=== PATIENT | female | born 1990 | race Caucasian/White ===

== ENCOUNTER 2020-07-02 12:24 | Emergency (ER) | payer OTHER, SELFPAY ==
--- NOTE | ~2020-07-02 | XR_ITS ---
XR ankle LT min 3V DATE: 07/02/2020 13:04 INDICATION: Fall, injury TECHNIQUE: 4 views COMPARISON: None FINDINGS: There is mild plantar calcaneal enthesopathy. No fracture or dislocation of the ankle or disruption of the ankle mortise. IMPRESSION: Mild plantar calcaneal enthesopathy Reviewed, dictated and finalized at location A.
[2020-07-02 12:27] VITALS: BP 124/78; PULSE 102; RESP 14; TEMP 36.8; O2SAT 98
--- NOTE | 2020-07-02 12:54 | ED.WOUNDLAC ---
HPI - Wound/Laceration General Chief Complaint: Wound/Laceration Stated Complaint: burned my hand Time Seen by Provider: 07/02/20 12:54 Source: patient Mode of arrival: ambulatory Limitations: no limitations History of Present Illness HPI narrative: Patient is a 30-year-old female who presents for evaluation of blister/wound to the palmar aspect of the left hand as well as left ankle pain. Pain in the left hand is burning in nature, pain in the left ankle is dull, aching and. 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 Patient presents for evaluation of blister injury to ensure that this is not a severe burn or at risk for infection. Patient is up-to-date on her tetanus. No numbness in the left hand. No active bleeding. Patient reports that she has some swelling and bruising in the left ankle. She denies numbness in the foot. No head trauma or loss of consciousness. No upper extremity injuries. Related Data Home Medications Medication Instructions Recorded Confirmed PNV 119-iron fum-folic acid tablet PO 07/02/20 [Se--19] calcium carbonate-vitamin D3 tablet 07/02/20 [Oysco 500/D] citalopram mg 07/02/20 clonazepam 07/02/20 glipizide mg 07/02/20 hydroxyzine HCl 07/02/20 lamotrigine 07/02/20 loperamide 07/02/20 07/02/20 metformin mg PO 07/02/20 metoclopramide HCl 07/02/20 omeprazole 07/02/20 pyridoxine (vitamin B6) [Vitamin 07/02/20 B-6] pyridoxine (vitamin B6) [Vitamin 07/02/20 B-6] topiramate 07/02/20 trazodone 07/02/20 Allergies Allergy/AdvReac Type Severity Reaction Status Date / Time coconut Allergy Severe LIP Verified 07/02/20 12:38 SWELLING amoxicillin Allergy Unknown Rash Verified 07/02/20 12:38 aspirin Allergy Unknown Rash Verified 07/02/20 12:38 influenza virus vaccine, Allergy Unknown ITCHING/SSUHMA Verified 07/02/20 12:38 specific SEA latex Allergy Unknown GLOVES-RASH Verified 07/02/20 12:38 NSAIDS (Non-Steroidal Allergy Unknown Rash Verified 07/02/20 12:38 Anti-Inflamma Penicillins Allergy Unknown Rash Verified 07/02/20 12:38 Review of Systems Review of Systems: Narrative: CONSTITUTIONAL: Denies fever CARDIOVASCULAR: Denies chest pain RESPIRATORY: Denies cough or dyspnea. GASTROINTESTINAL: Denies abdominal pain SKIN: Denies rash, reports blister to left hand MUSCULOSKELETAL: Denies back pain, reports left ankle swelling and pain NEUROLOGIC: Denies headache PMFSH Past Medical History Medical History Type 2 diabetes mellitus Surgical History Surgical History H/O section Family History Family History (Updated 08/20/15 @ 10:09 by DOCTOR UNKNOWN) Father Hypertension Family history of malignant neoplasm Other Family history of cardiovascular disease Social History Social History Smoking status: Current every day smoker Alcohol intake: current Gender identity (if verbalized by the patient): Female Exam Narrative: Exam Narrative: GENERAL: Awake, alert, conversant HEAD: Normocephalic, atraumatic. EYES: PERRLA and EOMI. ENT: Nares clear, no rhinorrhea or epistaxis. Mucous membranes moist. NECK: Supple. CHEST: No respiratory distress, breathing even and non labored HEART: Regular rate, sinus rhythm ABDOMEN:Non distended, obese EXTREMITIES: Decreased flexion and extension of the left ankle due to pain. There is mild edema to the lateral aspect of the left ankle and ecchymosis. No deformity. DP pulse 2+. Intact distal sensation. Full flexion and extension at the left knee without limitation or pain. No fibular head tenderness. Mild tenderness over the forefoot. Left hand notabl
[2020-07-02] MEDS: oxyCODONE/ACETAMINOPHEN 5-325 MG TABLET 1 TABLET PO (13:57)
[2020-07-02 14:02] VITALS: BP 141/92; PULSE 94; RESP 19; TEMP 36.6; O2SAT 99
--- NOTE | 2020-07-02 14:06 | PC.NURSE ---
Pt refused crutches
== END 2020-07-02 14:07 | disposition home or self-care (01) ==
PROVIDERS: Emergency Provider Emergency Medicine
DX: T23.202A Burn of second degree of left hand, unspecified site, initial encounter (principal); S93.402A Sprain of unspecified ligament of left ankle, initial encounter; T31.0 Burns involving less than 10% of body surface; X10.2XXA Contact with fats and cooking oils, initial encounter; W18.40XA Slipping, tripping and stumbling without falling, unspecified, initial encounter; X50.9XXA Other and unspecified overexertion or strenuous movements or postures, initial encounter
CPT/HCPCS: 73610; 99283; A9270

== ENCOUNTER 2020-07-17 15:02 | Emergency (ER) | payer OTHER, SELFPAY ==
--- NOTE | ~2020-07-17 | XR_ITS ---
EXAMINATION: XR wrist RT min 3V DATE: 07/17/2020 17:18 INDICATION: Medial sided right wrist bruising and posterior swelling post fall TECHNIQUE: Posteroanterior, ulnar deviation, oblique, and lateral views of the right wrist were obtai zi. COMPARISON: none FINDINGS: Alignment is normal. No fracture. Joint spaces are normal. Soft tissues are unremarkable. IMPRESSION: 1. . Negative right wrist radiographs. Reviewed, dictated and finalized at location A.
--- NOTE | ~2020-07-17 | CT_ITS ---
EXAMINATION: CT cervical spine wo con DATE: 07/17/2020 16:48 INDICATION: Head injury. Neck pain. TECHNIQUE: Computed tomography (CT) of the cervical spine was performed without intravenous contrast. Automated exposure control and iterative reconstruction technique were employed. The dose-length pro duct was 476.26 mGy-cm. COMPARISON: None FINDINGS: There is kyphosis and 7 degrees levocurvature of cervical spine. Vertebral body heights and intervertebral disc heights are normal. At C7-T1, there is mild bilateral facet joint osteoarthritis . No neural foraminal stenosis or central canal stenosis. IMPRESSION: 1. No fracture. Reviewed, dictated and finalized at location B. IMPRESSION: 1. No fracture.
--- NOTE | ~2020-07-17 | CT_ITS ---
EXAMINATION: CT brain wo con DATE: 07/17/2020 16:48 INDICATION: Head injury. TECHNIQUE: Computed tomography (CT) of the head was performed without intravenous contrast. The mA wa s adjusted according to patient size. Iterative reconstruction technique was employed. The dose-lengt h product was 605.33 mGy-cm. COMPARISON: Head CT 06/28/2013 FINDINGS: There is no intracranial hemorrhage, acute infarction, or abnormal intracranial mass lesion . The ventricles are normal in size. There is mild mucosal thickening in the paranasal sinuses. The m astoid air cells are normal. The orbits are normal. IMPRESSION: 1. Normal brain. Reviewed, dictated and finalized at location B. IMPRESSION: 1. Normal brain.
--- NOTE | ~2020-07-17 | XR_ITS ---
EXAMINATION: XR shoulder RT min 2V DATE: 07/17/2020 17:18 INDICATION: Posterior right shoulder pain post fall TECHNIQUE: AP internally and externally rotated, AP oblique externally rotated and transscapular Y vi ews of the right shoulder were obtained. COMPARISON: None FINDINGS: Normal alignment. No fracture. Glenohumeral joint is normal. Acromioclavicular joint is normal. Smal l subacromial spur. Soft tissues are unremarkable. Visualized portions of the lungs are clear. IMPRESSION: No acute osseous abnormality. Reviewed, dictated and finalized at location A.
--- NOTE | ~2020-07-17 | XR_ITS ---
EXAMINATION: XR elbow RT min 3V DATE: 07/17/2020 17:19 INDICATION: Right elbow pain post fall TECHNIQUE: Anteroposterior, two oblique and lateral views of the right elbow were obtained. COMPARISON: None. FINDINGS: Alignment is normal. No fracture or joint effusion. Joint spaces are normal. Tiny enthesophyte at the tip of the olecranon. Soft tissues are unremarkable. IMPRESSION: 1. No right elbow joint effusion or acute osseous abnormality. Reviewed, dictated and finalized at location A.
--- NOTE | ~2020-07-17 | XR_ITS ---
EXAMINATION: XR lumbar spine 2-3V, XR sacrum coccyx min 2V DATE: 07/17/2020 17:19 INDICATION: Low back and tailbone pain post fall TECHNIQUE: 1. Anteroposterior and lateral views of the lumbar spine, and cone-down lateral view of the lumbosacr al junction were obtained. 2. AP, angled AP and lateral views of the sacrum and coccyx were obtained. COMPARISON: CT abdomen and pelvis dated 08/08/2015 FINDINGS: Transitional L6 lumbosacral segment which is sacralized on the left. Minimal lumbar levocurvature. Sa gittal alignment is normal. Vertebral body heights are normal. Mild disc height loss at L5-L6. Sacrum and bilateral sacroiliac joints are normal within intact appearing sacral arches. Chronic leftward a ngulation and slight posterior subluxation of the coccyx relative to the tip of the sacrum which is u nchanged from prior CT and is likely either developmental or sequela of old trauma. No acute fracture s identified. IMPRESSION: 1. Mild disc height loss at L5-L6. No acute osseous abnormality in the lumbar spine, sacrum or coccyx . Reviewed, dictated and finalized at location A. IMPRESSION: 1. Mild disc height loss at L5-L6. No acute osseous abnormality in the lumbar s pine, sacrum or coccyx.
[2020-07-17 15:06] VITALS: BP 144/100; PULSE 106; RESP 16; TEMP 37.2; O2SAT 99
[2020-07-17] MEDS: ONDANSETRON INJ 4 MG/2 ML VIAL IV PUSH (17:20)
[2020-07-17] MEDS: MORPHINE SULFATE 2 MG/ML INJ IV PUSH (17:21)
[2020-07-17 18:00] VITALS: BP 116/82; PULSE 98; RESP 16; O2SAT 100
--- NOTE | 2020-07-17 18:17 | ED.FALL ---
HPI - Fall General Chief Complaint: Fall Stated Complaint: fall/hit injury Time Seen by Provider: 07/17/20 15:44 Source: patient Mode of arrival: ambulatory Limitations: no limitations History of Present Illness HPI Narrative: Patient presents for evaluation of the posterior aspect of the head, right arm low back and coccyx after slipping on a wet floor while working at [employer]. Patient denies loss of consciousness but reports throbbing to the posterior aspect of head and pain to the area as aforementioned. Patient reports decreased range of motion to her right shoulder due to pain which she put out posterior laterally in an attempt to catch her fall. Patient denies loss of consciousness, changes in vision or hearing, bleeding from any of her orifices patient denies loss of bowel or bladder function or saddle paresthesias. Patient reports some decrease of motion due to pain. Patient has a history of high blood pressure, diabetes, migraines. Related Data Home Medications Medication Instructions Recorded Confirmed calcium carbonate-vitamin D3 tablet 07/02/20 [Oysco 500/D] citalopram mg 07/02/20 clonazepam 07/02/20 glipizide mg 07/02/20 hydroxyzine HCl 07/02/20 lamotrigine 07/02/20 loperamide 07/02/20 07/02/20 metformin mg PO 07/02/20 metoclopramide HCl 07/02/20 omeprazole 07/02/20 pyridoxine (vitamin B6) [Vitamin 07/02/20 B-6] pyridoxine (vitamin B6) [Vitamin 07/02/20 B-6] lisinopril-hydrochlorothiazide 25 - 100 DAILY 07/17/20 Allergies Allergy/AdvReac Type Severity Reaction Status Date / Time coconut Allergy Severe LIP Verified 07/17/20 15:31 SWELLING amoxicillin Allergy Unknown Rash Verified 07/17/20 15:31 aspirin Allergy Unknown Rash Verified 07/17/20 15:31 influenza virus vaccine, Allergy Unknown ITCHING/SUSHMA Verified 07/17/20 15:31 specific SEA latex Allergy Unknown GLOVES-RASH Verified 07/17/20 15:31 NSAIDS (Non-Steroidal Allergy Unknown Rash Verified 07/17/20 15:31 Anti-Inflamma Penicillins Allergy Unknown Rash Verified 07/17/20 15:31 Review of Systems Review of Systems: Narrative: CONSTITUTIONAL: Denies fever, chills, or sweats. EYES: Denies visual changes, redness, or discharge. ENT: Denies rhinorrhea, congestion, sore throat, or otalgia. CARDIOVASCULAR: Denies chest pain, palpitations, or edema. RESPIRATORY: Denies cough or dyspnea. GASTROINTESTINAL: Denies abdominal pain, nausea, vomiting, or diarrhea. GENITOURINARY: Denies dysuria or hematuria. SKIN: Denies rash or itching. MUSCULOSKELETAL: Reports low back pain, right arm pain NEUROLOGIC: Reports headache, denies numbness, dizziness, or weakness. PSYCHIATRIC: Denies anxiety or depression. [facility] Family History Family History (Updated 08/20/15 @ 10:09 by DOCTOR UNKNOWN) Father Hypertension Family history of malignant neoplasm Other Family history of cardiovascular disease Social History Social History Smoking status: Current every day smoker Alcohol intake: current Gender identity (if verbalized by the patient): Female Exam Narrative: Exam Narrative: GENERAL: Well-appearing, well-nourished. Exam limited due to patient's discomfort and practicing range of motion and rotating for posterior exam. HEAD: Normocephalic, atraumatic. EYES: PERRLA and EOMI. ENT: Nares clear, no rhinorrhea or epistaxis. Mucous membranes moist. Oropharynx without tonsillar hypertrophy exudate or other lesions. Bilateral TMs pearly fuentes nonbulging no hemotympanum.. NECK: Supple. No adenopathy or masses. Sensation and range of motion intact to lower extremities. No saddle paresthesia. CHEST: Clear to auscultation. No respiratory distress. No wheezes rales or rhonchi HEART: Regular rate and rhythm. ABDOMEN: Soft, nontender, nondistended, normal active bowel sounds. BACK: No outward signs of injury. No outward signs of injury diffuse tenderness to palpation t
[2020-07-17 18:46] VITALS: BP 118/75; PULSE 72; RESP 16; O2SAT 100
== END 2020-07-17 18:59 | disposition home or self-care (01) ==
PROVIDERS: Emergency Provider Emergency Medicine
DX: S09.90XA Unspecified injury of head, initial encounter (principal); S46.911A Strain of unspecified muscle, fascia and tendon at shoulder and upper arm level, right arm, initial encounter; S30.0XXA Contusion of lower back and pelvis, initial encounter; F17.210 Nicotine dependence, cigarettes, uncomplicated
CPT/HCPCS: 70450; 72100; 72125; 72220; 73030; 73080; 73110; 81025; 96374; 96375; 99284; A4565; J2270; J2405

== ENCOUNTER 2020-09-25 17:29 | Emergency (ER) | payer OTHER, SELFPAY ==
[2020-09-25 17:49] VITALS: BP 113/74; PULSE 97; RESP 18; TEMP 36.2; O2SAT 100
--- NOTE | 2020-09-25 18:51 | ED.GENADULT ---
HPI - General Adult General Chief complaint: Extremity Injury, Lower Stated complaint: bilateral leg swelling, pain Time Seen by Provider: 09/25/20 18:07 Source: patient History of Present Illness HPI narrative: 30-year-old female presents to emergency department for bilateral lower extremity swelling since September 22, and pain that she noticed the next day. Patient took some Tylenol for pain. She also has noticed bruising for the same amount of time. No current abdominal pain. No nausea or vomiting. No fever or chills. Related Data Home Medications Medication Instructions Recorded Confirmed calcium carbonate-vitamin D3 tablet 07/02/20 [Oysco 500/D] citalopram mg 07/02/20 clonazepam 07/02/20 glipizide mg 07/02/20 hydroxyzine HCl 07/02/20 lamotrigine 07/02/20 loperamide 07/02/20 07/02/20 metformin mg PO 07/02/20 metoclopramide HCl 07/02/20 omeprazole 07/02/20 pyridoxine (vitamin B6) [Vitamin 07/02/20 B-6] pyridoxine (vitamin B6) [Vitamin 07/02/20 B-6] lisinopril-hydrochlorothiazide 25 - 100 DAILY 07/17/20 Allergies Allergy/AdvReac Type Severity Reaction Status Date / Time coconut Allergy Severe LIP Verified 09/25/20 17:52 SWELLING amoxicillin Allergy Unknown Rash Verified 09/25/20 17:52 aspirin Allergy Unknown Rash Verified 09/25/20 17:52 influenza virus vaccine, Allergy Unknown ITCHING/SUSHMA Verified 09/25/20 17:52 specific SEA latex Allergy Unknown GLOVES-RASH Verified 09/25/20 17:52 NSAIDS (Non-Steroidal Allergy Unknown Rash Verified 09/25/20 17:52 Anti-Inflamma Penicillins Allergy Unknown Rash Verified 09/25/20 17:52 Review of Systems Review of Systems: Narrative: CONSTITUTIONAL: Denies fever, chills, or sweats. EYES: Denies visual changes, redness, or discharge. ENT: Denies rhinorrhea, congestion, sore throat, or otalgia. CARDIOVASCULAR: Denies chest pain, palpitations, or edema. RESPIRATORY: Denies cough or dyspnea. GASTROINTESTINAL: Denies abdominal pain, nausea, vomiting, or diarrhea. GENITOURINARY: Denies dysuria or hematuria. SKIN: Denies rash or itching. MUSCULOSKELETAL: Denies back pain, joint pain, or myalgia. NEUROLOGIC: Denies headache, numbness, dizziness, or weakness. PSYCHIATRIC: Denies anxiety or depression. All systems reviewed & are unremarkable except as noted in HPI and below (ROS) PMFSH Past Medical History Medical History Type 2 diabetes mellitus Surgical History Surgical History H/O section Family History Family History Father Hypertension Family history of malignant neoplasm Other Family history of cardiovascular disease Social History Social History Smoking status: Current every day smoker Alcohol intake: current Gender identity (if verbalized by the patient): Female Exam Narrative: Exam Narrative: GENERAL: Well-appearing, well-nourished, and in no acute distress. HEAD: Normocephalic, atraumatic. EYES: PERRLA and EOMI. ENT: Nares clear, no rhinorrhea or epistaxis. Mucous membranes moist. NECK: Supple. CHEST: Clear to auscultation. No respiratory distress. HEART: Regular rate and rhythm. No murmur heard. Normal peripheral pulses. ABDOMEN: Soft, nontender, nondistended, normal active bowel sounds. EXTREMITIES: Normal range of motion. Minimal edema lower extremities bilaterally SKIN: Warm, dry, no rash. NEURO: No focal deficits. Alert and oriented x3. PSYCH: Normal mood and affect. Course Reevaluation(s) Reevaluation #1: 1999 -reevaluated patient, no new complaints. At this time, I see no emergent condition causing this patient's leg swelling and pain. Low suspicion for bilateral DVT. Pain likely musculoskeletal. Counseled patient to follow-up with her medical provider within 1 week. Ret
--- NOTE | 2020-09-25 19:04 | PC.NURSE ---
Pt states gets a rash from NSAID's, order changed per request Dr. Vivar.
[2020-09-25] MEDS: ACETAMINOPHEN 325 MG TABLET 650 MG PO (19:14)
--- NOTE | 2020-09-25 19:20 | PC.NURSE ---
Bedside report to GILDA Mccrary, to continue care.
[2020-09-25 19:25] LABS: Basophils Absolute Auto 0.1 K/mm3 (0.0-0.1); Basophils Percent Auto 0.7 % (0.2-1.2); Eosinophils Absolute Auto 0.2 K/mm3 (0-0.3); Eosinophils Percent Auto 1.9 % (0-4.4); Hematocrit 35.1 % (37.0-47.0); Hemoglobin 10.3 g/dL (12.0-15.0); Immature Granulocyte Absolute 0.02 K/mm3 (0.00-0.031); Immature Granulocyte Percent A 0.2 % (0-0.5); Lymphocytes Absolute Auto 2.64 K/mm3 (0.9-3.2); Mean Corpuscular HGB Conc 29.3 g/dl (32-36); Mean Corpuscular Hemoglobin 21.4 pg (26-34); Mean Platelet Volume 9.4 fl (7.4-10.4); Monocytes Absolute Auto 0.7 K/mm3 (0.1-0.6); Monocytes Percent Auto 6.2 % (2.6-8.5); Platelet Count Result 354 k/mm3 (150-375); Red Blood Count 4.81 M/mm3 (4.2-5.4); Red Cell Distribution Width 17.1 % (11.5-14.5); White Blood Count 10.6 K/mm3 (4.5-10.0)
[2020-09-25 19:37] LABS: Alanine Aminotransferase 15 U/L (4-35); Albumin Level 4.1 g/dL (3.5-5.1); Alkaline Phosphatase 74 U/L (38-126); Anion Gap 8 mmol/L (8-16); Aspartate Amino Transferase 19 U/L (14-36); Bilirubin,Total 0.2 mg/dL (0.2-1.3); Blood Urea Nitrogen 9 mg/dL (7-17); Calcium 9.2 mg/dL (8.4-10.2); Carbon Dioxide 31 mmol/L (22-30); Chloride 101 mmol/L (98-107); Creatine Kinase 113 U/L (30-135); Estimated CRCL calculation 120 ml/min; Estimated Glomerular Filt Rate > 60; Glucose 100 mg/dL (65-105); Potassium 4.2 mmol/L (3.4-5.0); Sodium 140 mmol/L (137-145)
== END 2020-09-25 20:17 | disposition home or self-care (01) ==
PROVIDERS: Emergency Provider Emergency Medicine
DX: M79.89 Other specified soft tissue disorders (principal); M79.605 Pain in left leg; M79.604 Pain in right leg; E11.9 Type 2 diabetes mellitus without complications; Z79.84 Long term (current) use of oral hypoglycemic drugs
CPT/HCPCS: 36415; 80053; 82550; 85025; 99283; A9270

== ENCOUNTER 2025-08-10 09:53 | Outpatient (CLI) | payer OTHER, SELFPAY ==
--- OUTSIDE RECORDS SUMMARY | 2025-08-10 10:32 | XMS_ITS | Clinical Summary ---
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 Role Phone Ge Rod MD Primary Care Provider [phone] Allergies Active Allergy Reactions Criticality Noted Date Comments Amoxicillin Hives Medium 11/20/2021 Aspirin Swelling Medium 08/31/2014 Coconut Flavor Swelling Medium 03/05/2018 Face swells up Coconut Oil Unknown 08/31/2014 Fluconazole Eye irritation,Swelling, Other (See comments) Medium 03/26/2022 Gabapentin Hives,Itching,Rash,S welling Medium 06/17/2024 Haemophilus Influenzae Type B Other (See comments) Low 08/31/2014 Patient state she is only allergic when Latex Rash Medium 08/31/2014 Nsaids (Non-Steroidal Anti-Inflammatory Drug) Swelling Medium 08/31/2014 Throat closes up Penicillins Rash Medium 08/31/2014 Medications lisinopriL (PRINIVIL,ZESTRIL ) 10 mg tablet 0 Active lamoTRIgine (LaMICtal) 100 mg tablet 0 Active citalopram (CeleXA) 20 mg tablet TK 1 T PO QD 8 Active LORazepam (ATIVAN) 2 mg tabletIndications :anxiety Take 1 tablet 30 minutes prior to test, 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 1 tablet 0 Active Additional Information Patient not taking.Reported on 06/17/2024 clonazePAM (KlonoPIN) 0.5 mg tablet Active cloNIDine (CATAPRES) 0.3 mg tablet 4 Active Trulicity 1.5 mg/0.5 mL pen injector Active ergocalciferol (VITAMIN D) 50,000 unit capsule 2 Active ferrous sulfate 325 mg (65 mg of elemental iron) tablet 8 Active hydroCHLOROthiazi de (HYDRODIURIL) 25 mg tablet Active clarithromycin (BIAXIN) 500 mg tablet Take 1 tablet (500 mg total) by mouth 2 (two) times a day 28 tablet 4 Active Additional Information Patient not taking.Reported on 08/09/2024 alcohol swabs (BD Alcohol Swabs) pads, medicated Acti ve lancets ([employer] Delica Plus Lancet) 30 gauge misc Active tetracycline (ACHROMYCIN,SUMYC IN) 500 mg capsule Take 1 capsule (500 mg total) by mouth 4 (four) times a day 56 capsule 4 Active omeprazole (PriLOSEC) 20 mg capsule Take 1 capsule (20 mg total) by mouth 2 (two) times a day 28 capsule 4 Active bismuth subsalicylate 262 mg tablet,chewable Take 2 tablets (524 mg total) by mouth 4 (four) times a day before meals and nightly for 14 days 112 tablet 4 Active lidocaine (LIDODERM) 5 % Place 1 patch on the skin daily for 12 hours Remove & discard patch within 12 hours or as directed by MD. 14 patch 5 Active cyclobenzaprine (FLEXERIL) 10 mg tablet Take 1 tablet (10 mg total) by mouth 2 (two) times a day as needed for muscle spasms 20 tablet 5 Active Active Problems Problem Noted Date Diagnosed Date Ventral hernia without obstruction or gangrene 0 06/17/2024 Assessment & Plan (08/09/2024 11:10 AM CDT): I do not appreciate a true fascial defect on exam but again exam is quite limited due to her body wall. I am going to start by ordering a CT scan of the abdomen to see this location if there is a true hernia. She has in the past been evaluated and set up for weight loss surgery but was denied as they had a tough time eradicate H pylori. Ultimately this residential would help address hernia recurrence as well as help with issues with the reflux. I will see if I can find someone that will take her [place] Medicaid. Assessment & Plan (06/17/2024 8:44 AM CDT): Painful bulge with heavy lifting, exam showed reducible ventral hernia. No prior imaging, will order CT A/P and refer to surgery. Helicobacter pylori infection 06/17/2024 Assessment & Plan (06/17/2024 8:41 AM CDT): reated with 9 different antibiotics for H pylori in 2021 and still testing positive on breath test. She thinks she is resistant to many abx due to infection complications during her C section previously. She was never given Amoxicillin given childhood allergic reaction of having rash and hives. However she is willing it to try now to help eradicate her persistent infection. Will prescribed triple therapy with amoxicillin, clarithromycin and omeprazole for 14 days and check for eradication a month after completion of therapy. Discussed with patient that she can pre- medicate with benadryl to help with her rash if needed. Gastroesophageal reflux disease without esophagi tis 06/17/2024 Assessment & Plan (08/09/2024 10:56 AM CDT): Given her prior history of H pylori and the location of the pain in the epigastrium it is possible that she has gastritis or even ulcer that has developed and this is contributing to the pain. If CT scan is negative we will discuss with GI performing an upper endoscopy to evaluate further. Assessment & Plan (06/17/2024 8:40 AM CDT): Normal EGD from 2021. Takes famotidine very rarely. Symptoms are mostly controlled with milk. Continue anti-reflux lifestyle modifications with weight loss and avoiding fatty, greasy foods. Continue famotidine PRN Surgical History Surgery Date Site/Laterality Comments TONSILLECTOMY SECTION CARPAL TUNNEL RELEASE ABDOMINAL SURGERY 10/23/2012 - 11/22/2012 CHOLECYSTECTOMY 08/23/2015 - 09/22/2015 CYST REMOVAL 07/24/2019 - 08/22/2019 Right Medical History Medical History Date Comments Depression Migraines Anemia MRSA (methicillin resistant Staphylococcus aureu s) Hypertension Diabetes mellitus (HCC) Cancer (HCC) Anxiety Family History Medical History Relation Name Comments Alcohol abuse Other Arthritis Other Cancer Other Diabetes Other Hypertension Other Kidney disease Other Mental illness Other Stroke Other Relation Name Status Comments Other Social History Tobacco Use Types Packs/Day Years Used Date Smoking Tobacco: Former Smokeless Tobacco: Never Tobacco Cessation:Counseling Given: Not Answered Comments:quit 4 days ago Alcohol Use Standard Drinks/Week Comments Never 0 (1 standard drink = 0.6 oz pur e alcohol) AUDIT-C Answer Date Recorded Q1: How often do you have a drink containing alc ohol? Never 08/09/2024 Average Number of Drinks Not on file 024 Frequency of Binge Drinking Not on file 07/24 Personal Safety Answer Date Recorded Have you ever been in or are you currently in a harmful physical or emotional relationship or is someone making you feel afraid or unsafe? Denies 04/06/2025 Comments No Sex and Gender Information Value Date Recorded Sex Assigned at Not on file Legal Sex Female 11:08 PM [employer] Gender Identity Not on file Sexual Orientation Not on file Obstetrics History Last Filed Vital Signs Vital Sign Reading Time Taken Comments Blood Pressure 131/66 04/07/2025 12:30 AM CDT Pulse 80 04/07/2025 12:55 AM CDT Temperature 36.1 C (97 F) 04/06/2025 9:50 PM CDT Respiratory Rate 19 04/07/2025 12:55 AM CDT Oxygen Saturation 96% 04/07/2025 12:55 AM CDT Inhaled Oxygen Concentration - - Weight 140.2 kg (309 lb) 04/06/2025 5:10 PM CDT Height 158.8 cm (5' 2.5) 04/06/2025 5:10 PM CDT Body Mass Index 55.62 04/06/2025 5:10 PM CDT Plan of Treatment Health Maintenance Due Date Last Done Comments Cervical Cancer Screening 1988 Depression Screening 1988 Hepatitis C Screening 1988 Varicella Vaccines (1 of 2 - 13+ 2-dose series) 2001 Regular Well Visit/Exam 18-64 2006 HPV Vaccines (2 - 3-dose series) 10/29/2009 10/01/2009 Influenza Vaccine (#1) 2025 08/19/2015 DTaP/Tdap/Td Vaccine (3 - Td or Tdap) 02/19/2028 02/18/2018, 10/01/2009 Hepatitis B Screening Completed 10/01/2009 Pneumococcal vaccine <65 Aged Out No longer eligible based on patient's age to complete this topic Insurance [facility] [employer] [facility] [employer]ENS[employer] GENERIC Care Teams 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
--- OUTSIDE RECORDS SUMMARY | 2025-08-10 10:32 | XMS_ITS | Clinical Summary ---
Author Organization [facility] Address [address] [address] Care Team Providers Care Water [employer]er Systems Supervisor Name Role Phone Mu Hdez APRN-NETWORK SUPPORT ENGINEER Primary Care Provide r Source Comments [facility],non-owned Affiliates and Associated Physician Practices is amultiple site organization consisting of ambulatory clinics and hospital sitesin [place], [place], [place] and [place]. This disclosure is being madepursuant to the Care Everywhere program and may not contain all information available regarding this patient. Last updated 18.[facility] Allergies Active Allergy Reactions Criticality Noted Date Comments Amoxicillin Other 01/02/2022 Rash Aspirin 08/31/2014 Coconut Oil 08/31/2014 Flu Virus Vaccine 08/31/2014 Latex 08/31/2014 Nsaids 08/31/2014 Penicillins 08/31/2014 Medications * Be aware that medications may not be up to date on this document. Alwaysverify current medications with the patient. metFORMIN ER 24hr (GLUCOPHAGE XR) 750 MG tablet Take 750 mg by mouth daily with dinner Active hydroCHLOROthia zide (HYDRODIURIL) 25 MG tablet Take 25 mg by mouth 2 times daily Active lamoTRIgine (LAMICTAL) 150 MG tablet Take 150 mg by mouth once daily Active lisinopril (PRINIVIL; ZESTRIL) 20 MG tablet Take 20 mg by mouth once daily Active ferrous sulfate 325 (65 FE) MG tablet Take 1 (one) tablet by mouth 3 times daily with meals 100 tablet 4 2 Active ascorbic acid (VITAMIN C) 500 MG tablet Take 1 (one) tablet by mouth 3 times daily 100 tablet 4 2 Active cloNIDine (CATAPRES) 0.2 MG tablet Take 0.2 mg by mouth at bedtime Active citalopram (CELEXA) 10 MG tablet Take 10 mg by mouth once daily Active pantoprazole EC (PROTONIX) 40 MG tabletIndicatio ns:H. pylori infection Take 1 (one) tablet by mouth 2 times daily 28 tablet 2 Active Additional Information Patient not taking.Reported on 09/03/2022 topiramate (Topamax) 25 MG tablet 2 Active tiZANidine (Zanaflex) 4 MG tablet as needed 2 Active vitamin D, ergocalciferol, (Drisdol) 1.25 MG (11510 UT) capsuleIndicati ons:Vitamin D Deficiency Take 1 (one) capsule by mouth every 7 days Reasons: Vitamin D Deficiency 4 capsule 3 2 Active Active Problems Problem Noted Date Diagnosed Date Abnormal maternal glucose tolerance, antepartum 01/11/2015 Previous delivery, antepartum condition or complication 01/11/2015 Other specified screening(V28.89) 08/24 Supervision of other high-risk 014 Overview (09/30/2015): Dating: doc 7 week scan O+/I/-/-, HIV NR Obesity 08/31/2014 Overview (08/31/2014): Questionable h/o GDM in G1 with PCOS diagnosed after. Has very poor nutritional intake, with consumption of large amount of simple carbs. Bipolar Disorder and Anxiety 08/31/2014 Overview (08/31/2014): Previously on Mona and Xanax, then switched to Celexa and Buspar immediately before current , but self-discontinued because of feared risk to fetus. 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 Mace HTN (hypertension) 08/24/2014 4 Immunizations Immunization Administration Dates Next Due Covid Moderna primary monova lent 12+ yr 0.5mL 10/22/2021,03/27/2021,02/14/2021 DT 10/01/2009 HEP A VACCINE, ADULT 10/01/2009 HEP B VACCINE ADOL/ADULT 2 DOSE 10/01/2009 Human Papilloma Virus Vaccine 10/01/2009 Family History Medical History Relation Name Comments Arthritis Father Cancer Father squamos cell Heart Disease Father Hypertension Father Cancer Maternal Aunt Diabetes Maternal Aunt Arthritis Paternal Grandfather Cancer Paternal Grandfather Heart Failure Paternal Grandfather Hypertension Paternal Grandfather Kidney Disease Paternal Grandfather Arthritis Paternal Grandmother Cancer Paternal Grandmother Relation Name Status Comments Father Maternal Aunt Paternal Grandfather Paternal Grandmother Social History Tobacco Use Types Packs/Day Years Used Date Smoking Tobacco: Former Cigarettes 0.3 5 0 02/17/2017 - 02/17/2022 Smokeless Tobacco: Never Alcohol Use Standard Drinks/Week Comments Not Currently 0 (1 standard drink = 0.6 oz pur e alcohol) occasionally AUDIT-C Answer Date Recorded Q1: How often do you have a drink containing alc ohol? 2-4 times a month 03/10/2022 Q2: How many drinks containi ng alcohol do you have on a typical day when you are drinking? 1 or 2 03/10/2022 Q3: How often do you have si x or more drinks on one occasion? Less than monthly 03/10/2022 Comments No Sex and Gender Information Value Date Recorded Sex Assigned at Not on file Legal Sex Female 11:53 AM CDT Gender Identity Not on file Sexual Orientation Not on file Last Filed Vital Signs Vital Sign Reading Time Taken Comments Blood Pressure 124/82 09/03/2022 10:00 AM CDT Pulse 78 09/03/2022 10:00 AM CDT Temperature 36.8 C (98.2 F) 09/03/2022 10:00 AM CDT Respiratory Rate 16 09/03/2022 10:0 0 AM CDT Oxygen Saturation 96% 09/03/2022 10: 00 AM CDT Inhaled Oxygen Concentration - - Weight 145.9 kg (321 lb 9.6 oz) 022 10:00 AM CDT Height 159.2 cm (5' 2.68) 09/03/2022 1 0:00 AM CDT Body Mass Index 57.56 09/03/2022 10:00 AM CDT Plan of Treatment Health Maintenance Due Date Last Done Comments HIV SCREENING 2003 HEPATITIS C SCREENING 04/28/2006 PAP SMEAR 2009 HEPATITIS B VACCINE (2 of 3 - 19+ 3-dose series) 10/29/2009 10/01/2009 HPV VACCINE (2 - 3-dose series) 10/29/2009 10/01/2009 DTAP/TDAP/TD VACCINES (2 - Tdap) 10/01/2019 10/01/2009 DEPRESSION SCREENING 11/23/2024 COVID-19 VACCINE (4 - 2024-2 6 season) 2025 10/22/2021, 03/27/2021, 02/14/2021 ZOSTER VACCINE (1 of 2) 2038 HIB VACCINE Aged Out No longer eligi ble based on patient's age to complete this topic MENINGOCOCCAL (Group B) VACCINE SHARED DECISION-MAKING Aged Out No longer eligible based on patient's age to complete this topic MENINGOCOCCAL GROUPS A/C/Y/W VACCINE Aged Out No longer eligible b ased on patient's age to complete this topic PNEUMOCOCCAL VACCINE Aged Out No long er eligible based on patient's age to complete this topic Insurance [facility] [employer] [place] Care Teams [employer] Supervisor Relationship Specialty Start Date End Date Mu Hdez, SAAD-NETWORK SUPPORT ENGINEER PCP - General Nurse Practitioner Gerontology 01/02/22
--- OUTSIDE RECORDS SUMMARY | 2025-08-10 10:32 | XMS_ITS | Encounter Summary ---
Author Organization [facility] Address [address] [place] [address] Care Team Providers Care Memorial Designer Name Role Phone Mu Hdez Primary Care Provide r Reason for Visit * Reason Onset Date Comments Appointment 10/09/2014 Called patient t o reschedule at 20wks, she informed me that she changed physicians because she was told we didn't except [place] [employer]. Encounter Details Date Type Department Care Team (Late st Contact Info) Description 10/09/2014 Telephone [facility] [address] [place] [address] Anushka Santos Appointment (Called patient to reschedule at 20wks, she informed me that she changed physicians because she was told we didn't except [place] [employer].) Social History Tobacco Use Types Packs/Day Years Used Date Smoking Tobacco: Never Alcohol Use Standard Drinks/Week Comments No 0 (1 standard drink = 0.6 oz pur e alcohol) Comments Yes Sex and Gender Information Value Date Recorded Sex Assigned at Not on file Legal Sex Female 11:53 AM CDT Gender Identity Not on file Sexual Orientation Not on file documented as of this encounter Plan of Treatment Not on file documented as of this encounter Visit Diagnoses Not on filedocumented in this encounter Care Teams Memorial Designer Relationship Specialty Start Date End Date Mu Hdez APRN-CNP PCP - General Nurse Practitioner Gerontology 01/02/22 documented as of this encounter
--- OUTSIDE RECORDS SUMMARY | 2025-08-10 10:32 | XMS_ITS | Encounter Summary ---
Author Organization [facility] Address [address] [place] [address] Care Team Providers Care Plumbing Contractor Name Role Phone Mu Hdez NP Primary Care Provider + [phone] Ge Rod MD Primary Care Provider [phone] Encounter Details Date Type Department Care Team (Late st Contact Info) Description 10/24/[address] [address] Olamide, Laurie, RT Social History Tobacco Use Types Packs/Day Years Used Date Smoking Tobacco: Every Day Smokeless Tobacco: Never Alcohol Use Standard Drinks/Week Comments Yes 0 (1 standard drink = 0.6 oz pur e alcohol) Comments Unknown Sex and Gender Information Value Date Recorded Sex Assigned at Not on file Legal Sex Female 11:08 PM COILED COIL INSPECTOR Gender Identity Not on file Sexual Orientation Not on file documented as of this encounter Plan of Treatment Not on file documented as of this encounter Visit Diagnoses Not on filedocumented in this encounter Additional Health Concerns Infection Onset Date Last Indicated Resolved Time COVID19 02/14/2021 03/18/2021 04/01/2021 3:05 AM CDT documented as of this encounter Care Teams Plumbing Contractor Relationship Specialty Start Date End Date Mu Hdez NP PCP - General Pain Management 10/01/20 04/05/25 Ge Rod MD [address] [place] [address] PCP - General Internal Medicine 04/06/25 documented as of this encounter
--- OUTSIDE RECORDS SUMMARY | 2025-08-10 10:32 | XMS_ITS | Clinical Summary ---
Author Organization [facility] Address [address] [place] [phone] Phone Care Team Providers Care Undercover Agent Name Role Phone Unavailable Primary Care Provider Unavailabl e Allergies Active Allergy Reactions Criticality Noted Date Comments Amoxicillin Rash 07/24/2015 Aspirin Swelling 07/24/2015 Latex Rash 07/24/2015 Nsaids (Non-Steroidal Anti-I nflammatory Drug) Swelling 07/24/2015 Penicillins Rash 07/24/2015 Medications No known medications Social History Tobacco Use Types Packs/Day Years Used Date Smoking Tobacco: Never Assessed Comments Unknown Sex and Gender Information Value Date Recorded Sex Assigned at Not on file Legal Sex Female 4:18 AM PARAEDUCATOR Gender Identity Not on file Sexual Orientation Not on file Last Filed Vital Signs Vital Sign Reading Time Taken Comments Blood Pressure 142/96 07/24/2015 11:36 AM CDT Pulse - - Temperature 36.8 C (98.2 F) 07/24/2015 11:36 AM CDT Respiratory Rate 20 07/24/2015 11:36 AM CDT Oxygen Saturation 100% 07/24/2015 11:36 AM CDT Inhaled Oxygen Concentration - - Weight 107.5 kg (237 lb) 07/24/2015 11:36 AM CDT Height 157.5 cm (5' 2) 07/24/2015 11:36 AM CDT Body Mass Index 43.35 07/24/2015 11:36 AM CDT Plan of Treatment Health Maintenance Due Date Last Done Comments DTAP/TDAP/TD VACCINES (1 - Tdap) 2007 HEPATITIS B VACCINES (1 of 3 - 19+ 3-dose series) 04/23 HPV/Cotest (21-29) 2009 HPV VACCINES (1 - 3-dose SCDM series) 2015 CERVICAL CANCER SCREENING 2018 HPV/Cotest (30-65) 2018 PAP SMEAR 2018 INFLUENZA VACCINE (#1) 2025 Insurance
--- OUTSIDE RECORDS SUMMARY | 2025-08-10 10:32 | XMS_ITS | Clinical Summary ---
Author Organization [facility] Address [address] [place] [address] Phone Care Team Providers Care Vibrator Operator Name Role Phone Tessa Dhaliwal APRN, TIRE INSTALLER Primary Care P rovider Allergies Active Allergy Reactions Criticality Noted Date Comments Amoxicillin Rash 03/05/2018 Coconut Flavoring Agent (Non-Screening) Swelling 03/05/2018 Face swells up Influenza Virus Vaccine Other (see Comments) Patient state she is only allergic when Latex Rash 03/18/2018 Nsaids Swelling 03/05/2018 Throat closes up Penicillins Rash 03/05/2018 Medications ferrous sulfate 325 (65 Fe) MG Tablet TK 1 T PO TID 0 8 Active metFORMIN (GLUCOPHAGE) 1000 MG Tablet TK 1 T PO BID 12 8 Active Multiple Vitamin (MULTI-VITAMINS ) Tablet TK 1 T PO QD 11 8 Active traMADol (ULTRAM) 50 MG Tablet Take 50 mg by mouth every 6 hours as needed. 0 8 Active Norethindrone, Contraceptive, 0.35 MG Tablet TK 1 T PO D 0 8 Active citalopram (CELEXA) 20 MG Tablet TK 1 T PO QD 0 8 Active venlafaxine (EFFEXOR-XR) 37.5 MG CAPSULE SR 24 HR TK 1 C PO QD WF 0 8 Active Cholecalciferol (VITAMIN D PO) Take 500 mg by mouth 2 times daily. Active Norelgestromin- Eth Estradiol (XULANE TD) by Transdermal route once a week. Active raNITIdine (ZANTAC) 150 MG Tablet Take 2 Tabs by mouth nightly. 180 Tab 8 Active Active Problems Problem Noted Date Diagnosed Date Iron deficiency 03/07/2018 Acid reflux 03/07/2018 Iron deficiency anemia 03/05/2018 Family History Medical History Relation Name Comments Cancer Father Pancreatic ca Heart Disease Father Hypertension Father Squamous Cell Carcinoma Father Cancer Maternal Aunt breast Kidney Disease Paternal Grandfather Relation Name Status Comments Father Maternal Aunt Mother Paternal Grandfather Social History Tobacco Use Types Packs/Day Years Used Date Smoking Tobacco: Every Day Cigarettes 0.3 12 Smokeless Tobacco: Never Tobacco Cessation:Ready to Q uit: No; Counseling Given: Yes Alcohol Use Standard Drinks/Week Comments Not Asked 0 (1 standard drink = 0.6 oz pur e alcohol) Comments No Sex and Gender Information Value Date Recorded Sex Assigned at Not on file Legal Sex Female 5:42 PM CDT Gender Identity Not on file Sexual Orientation Not on file 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 Not on file Not on file Last Filed Vital Signs Vital Sign Reading Time Taken Comments Blood Pressure 132/67 03/30/2018 11:30 AM CDT Pulse 75 03/30/2018 9:48 AM CDT Temperature 36 C (96.8 F) 03/30/2018 11:30 AM CDT Respiratory Rate 16 03/30/2018 11:30 AM CDT Oxygen Saturation 100% 03/30/2018 11:30 AM CDT Inhaled Oxygen Concentration - - Weight 127 kg (280 lb) 03/18/2018 9:00 AM CDT Height 157.5 cm (5' 2) 03/18/2018 9:00 AM CDT Body Mass Index 51.21 03/18/2018 9:00 AM CDT Plan of Treatment Health Maintenance Due Date Last Done Comments Hepatitis C Virus (HCV) Screening 1988 Hepatitis B Immunization (1 of 3 - 19+ 3-dose series) 2007 Pap Smear 2009 Human Papillomavirus (HPV) Immunization (1 - 3-dose SCDM series) 2015 Cervical Cancer Screening (CCS) 2018 HPV/Cotest 2018 Influenza Immunization (#1) 2025 08/19/2015 SARS-COV-2 Immunization ( season) 2025 10/22/2021, 03/27/2021, 02/14/2021 Respiratory Syncytial Virus (RSV) Immunization (Adult) (1 - 1-dose 75+ series) 2063 DTaP/Tdap/Td Immunization Discontinued 02/18/2018 TdaP Immunization Completed 02/18/2018 Meningococcal Immunization (ACWY) Aged Out No longer eligible based on patient's age to complete this topic Pneumococcal Immunization Combined Aged Out No longer eligible based on patient's age to complete this topic Rotavirus Immunization Aged Out No lo nger eligible based on patient's age to complete this topic Insurance [employer] Care Teams Vibrator Operator Relationship Specialty Start Date End Date Tessa Dhaliwal, SAAD, TIRE INSTALLER [address] [place], [place] [id number] PCP - General Advanced Practice Nurse 03/05/18
== END 2025-08-10 09:54 | disposition home or self-care (01) ==
LOC: ANHLAB 09:57
PROVIDERS: PCP Internal Medicine; Visit Provider Internal Medicine
DX: A04.8 Other specified bacterial intestinal infections (principal)
CPT/HCPCS: 87338